=== PATIENT | female | born 1980 | race Caucasian/White ===

== ENCOUNTER 2024-04-28 10:05 | Emergency (ER) | payer OTHER, MEDICAID, SELFPAY ==
[2024-04-28 10:19] VITALS: BP 163/97; PULSE 64; RESP 20; TEMP 37.1; O2SAT 97; BMI 51.7
--- NOTE | 2024-04-28 10:40 | XR_ITS ---
Examination: Sacrococcyx 3 views Technique: AP inclined AP lateral sacrum and coccyx 3 views Exam date and time: April 28, 2024 1058 hrs. Indications: Injury to the sacrum 4 days ago with ankle pain. Findings: Adequate alignment sacral and coccygeal segments Moderate disc narrowing L5-S1 No acute sacral fracture Impression: No acute sacral fracture
--- NOTE | 2024-04-28 10:41 | PD.EDBACK ---
ED Back Injury Pain RME/HPI General Chief Complaint: Back Pain/Injury Stated Complaint: LOWER BACK/TAILBONE PAIN FELL OUT OF BED LAST NIGH Time Seen by Provider: 04/28/24 10:28 Source: patient Arrival date/time: 04/28/24 10:05 43-year-old female past medical history of diabetes and hypertension presents emergency department complaining of pain to tailbone after suffering fall off her bed and landing on her buttocks. Patient reports occurred last night. Patient denies any fever, chills, bowel or bladder dysfunction, saddle anesthesia, or any other associated symptom. Mode of arrival: ambulatory Limitations: no limitations Related Data Home Medications ?Medication ?Instructions ?Recorded ?Confirmed Levothyroxine * (SYNTHROID *) 75 mcg PO QDAY #0 tabs 10/21/16 12/04/19 fluoxetine 20 mg capsule (Prozac) 20 mg PO HS #0 caps 10/21/16 12/04/19 metoprolol tartrate 25 mg tablet 25 mg PO BID #0 tabs 12/06/16 12/04/19 hydrochlorothiazide PO 12/04/19 12/04/19 metformin PO 12/04/19 12/04/19 Previous Rx's ?Medication ?Instructions ?Recorded cyclobenzaprine 10 mg tablet 10 mg PO TID PRN muscle spasm #30 12/05/19 tabs ibuprofen 800 mg tablet 800 mg PO TID PRN pain #30 tabs 12/05/19 sulfamethoxazole 800 1 tab PO BID #14 tabs 07/09/22 mg-trimethoprim 160 mg tablet (Bactrim DS) hydrocodone 5 mg-acetaminophen 325 1 tab PO BID PRN pain #10 tabs 07/18/23 mg tablet ibuprofen 800 mg tablet 800 mg PO TID PRN pain #30 tabs 07/18/23 cyclobenzaprine 10 mg tablet 10 mg PO TID PRN muscle spasm #10 04/28/24 tabs ibuprofen 600 mg tablet 600 mg PO Q8H PRN pain #20 tabs 04/28/24 Allergies Allergy/AdvReac Type Severity Reaction Status Date / Time codeine Allergy Intermediate STOMACH Verified 07/09/22 14:50 PAIN sertraline Allergy Mild Rash Verified 07/09/22 14:50 nitrofurantoin Allergy Verified 07/18/23 14:50 [From Macrobid] Review of Systems Review of Systems Systems Reviewed: All systems reviewed, normal except as documented Constitutional Constitutional: Reports system reviewed and no additional complaints, except as documented, Denies body ache(s), Denies chills and Denies fever(s) Eyes Eyes: Reports system reviewed and no additional complaints, except as documented and Denies change in vision ENT Ears, Nose, Mouth, and Throat: Reports system reviewed and no additional complaints, except as documented, Denies disequilibrium, Denies dizziness, Denies sore throat and Denies vertigo Cardiovascular Cardiovascular: Reports system reviewed and no additional complaints, except as documented, Denies chest pain and Denies dyspnea Respiratory Respiratory: Reports system reviewed and no additional complaints, except as documented, Denies chest congestion, Denies cough and Denies dyspnea Gastrointestinal Gastrointestinal: Reports system reviewed and no additional complaints, except as documented, Denies abdominal pain, Denies nausea and Denies vomiting Musculoskeletal Musculoskeletal: Reports system reviewed and no additional complaints, except as documented, Denies abnormal gait, Denies arthralgias and Reports back pain Integumentary/Breasts Skin/Breast: Reports system reviewed and no additional complaints, except as documented, Denies erythema, Denies rash and Denies wounds Neurologic Neurologic: Reports system reviewed and no additional complaints, except as documented, Denies abnormal gait, Denies disequilibrium, Denies dizziness and Denies vertigo Past Medical History Past Medical History CARDIAC: Positive Hypertension; Negative Congestive Heart Failure RESPIRATORY: Negative Chronic Obstructive Pulmonary Disease (COPD) GENITOURINARY: Negative Renal Disease ENDOCRINE: Positive Diabetes Mellitus Type 2 and Hypothyroidism; Negative Diabetes Mellitus Type 1 PSYCHO/SOCIAL: Positive Depression Social History SMOKING STATUS: Never smoker ED Exam General Limitations: Present no limitations General appearance: Present alert and in no apparent distress Head Head exam: Present atraumatic Eye Eye exam: Present normal appearance, PERRL and EOMI ENT ENT exam: Present normal exam, normal oropharynx and mucous membranes moist Neck Neck exam: Present normal inspection, full ROM and trachea midline Chest Chest inspection: Present normal inspection and symmetric chest wall rise Respiratory Respiratory exam: Present normal lung sounds bilaterally Cardiovascular Cardiovascular exam: Present regular rate, normal rhythm and normal heart sounds Abdominal Exam Abdominal exam: Present soft and normal bowel sounds Extremities Exam Extremities exam: Present normal inspection and full ROM Back Exam Back exam: Present normal inspection, full ROM and tenderness (Lower back coccyx); Absent CVA tenderness (R) or CVA tenderness (L) Neurological Exam Neurological exam: Present alert, oriented X3 and CN II-XII intact Psychiatric Psychiatric exam: Present normal affect and normal mood Skin Skin exam: Present warm, dry, intact and normal color Course Quality Measures none Orders Category Date Time Status XR sacrum coccyx min 2V Stat Exams 04/28/24 10:40 Completed CYCLObenzaPRINE [Flexeril] Med 04/28/24 10:41 Discontinued 5 mg PO X1 ONE Ketorolac Inj [Toradol Inj] Med 04/28/24 10:41 Discontinued 30 mg IM X1 ONE Vital Signs Vital signs: Vital Signs Temperature 98.7 F 04/28/24 10:19 Pulse Rate 64 04/28/24 10:19 Respiratory Rate 20 04/28/24 10:19 Blood Pressure 163/97 H 04/28/24 10:19 Pulse Oximetry (%) 97 04/28/24 10:19 Oxygen Delivery Method Room Air 04/28/24 10:19 97% room air within normal limits Back Pain / Injury MDM Narrative MDM Narrative:: 43-year-old female past medical history of diabetes and hypertension presents emergency department complaining of pain to tailbone after suffering fall off her bed and landing on her buttocks. Patient reports occurred last night. Patient denies any fever, chills, bowel or bladder dysfunction, saddle anesthesia, or any other associated symptom. Patient GCS of 15 with steady gait. X-rays were negative for any acute fracture. Patient appears nontoxic and hemodynamically stable. Patient discharged and instructed to follow-up with primary care provider and request MRI if symptoms persist. Instructed to return to emergency department for any worsening symptoms or as needed. Patient data External records reviewed:: [facility] previous records Clinical information provided by:: patient Social determinants that could affect healthcare access:: none Patient has the following chronic illnesses:: See chart How is presenting disease/condition affected by chronic disease/condition?: uneffected by Evaluation data The following diagnostics were reviewed and interpreted by me:: radiology exam(s) Lab and/or radiology exams considered but not ordered:: Ordered Interpretation Summary: Interpreted by me Medications / Prescriptions Medications or Prescriptions considered but not ordered:: Ordered Medication administrations:: Medication Administration History Discontinued Medications Cyclobenzaprine HCl (Cyclobenzaprine 5 Mg Tablet) 5 mg PO X1 ONE Stop: 04/28/24 10:42 Last Admin: 04/28/24 10:46 Dose: 5 mg Documented By: LUCY Ketorolac Tromethamine (Ketorolac Inj 60 Mg/2 Ml Vial) 30 mg IM X1 ONE Stop: 04/28/24 10:42 Last Admin: 04/28/24 10:47 Dose: 30 mg Documented By: LUCY Given Consultations Consultation(s) initiated? (list below): No Diagnosis Differential diagnosis back pain/injury: lumbar radiculopathy, sciatica, strain of lumbar region, renal colic, pyelonephritis, thoracic back pain, AAA and discitis Most likely diagnosis given after review of the tests above:: Contusion of sacrum Admission Indicated Admission indicated?: not indicated Admission Request Was there a request for admission?: No Disposition Plan Disposition Plan: Discharge Discharge Attestation Discharge Attestation: The patient and all family members were given an opportunity to ask questions and understood the discharge instructions. Discharge instructions specifically effects, indications for sooner follow up or return to the emergency department, and the expected course of current diagnosis. Patient condition: Stable Discharge Plan Plan Patient Disposition: HOME (Self Care) Disposition Comment: Stable Prescriptions/Referrals Prescriptions/Med Rec: New cyclobenzaprine 10 mg tablet 10 mg PO TID PRN (Reason: muscle spasm) Qty: 10 0RF ibuprofen 600 mg tablet 600 mg PO Q8H PRN (Reason: pain) Qty: 20 0RF No Action hydrochlorothiazide PO metformin PO fluoxetine [Prozac] 20 MG capsule 20 mg PO HS Qty: 0 Levothyroxine * (SYNTHROID *) 75 MCG tablet 75 mcg PO QDAY Qty: 0 metoprolol tartrate 25 MG tablet 25 mg PO BID Qty: 0 cyclobenzaprine 10 mg tablet 10 mg PO TID PRN (Reason: muscle spasm) Qty: 30 0RF ibuprofen 800 mg tablet 800 mg PO TID PRN (Reason: pain) Qty: 30 0RF sulfamethoxazole-trimethoprim [Bactrim DS] 800-160 mg tablet 1 tab PO BID Qty: 14 0RF ibuprofen 800 mg tablet 800 mg PO TID PRN (Reason: pain) Qty: 30 0RF hydrocodone-acetaminophen 5-325 mg tablet 1 tab PO BID MDD 10 PRN (Reason: pain) Qty: 10 0RF Referrals: Lilly Silveira PA-C ([facility]) [Primary Care Provider] - In 1 week Problem List Clinical Impression: Contusion of sacrum Patient/Caregiver Discharge Instructions Discharge Activity: activity as tolerated Education Materials: Back Safety Bed, Back Safety: Bending, Back Safety: Lifting, ED Coccyx or Sacrum Contusion, ED Back Contusion Additional Instructions: Take medication as prescribed. Follow-up with primary care provider in 2 to 3 days and request physical therapy or MRI if symptoms persist. Return to emergency department for any worsening symptoms or as needed. Print Language: Mohawk Stand Alone Forms: Angela Award Info., Patient Portal Info Letter PA/MARKETING OPERATIONS MANAGER Supervising Physician PA/MARKETING OPERATIONS MANAGER Supervising Physician: Dr. Max
[2024-04-28] MEDS: CYCLObenzaPRINE 5 MG TABLET PO (10:46)
[2024-04-28] MEDS: KETOROLAC INJ 60 MG/2 ML VIAL 30 MG IM (10:47)
== END 2024-04-28 11:50 | disposition home or self-care (01) ==
PROVIDERS: Emergency Provider Emergency Medicine; PCP Physician Assistant
DX: S30.0XXA Contusion of lower back and pelvis, initial encounter (principal); W06.XXXA Fall from bed, initial encounter; E11.9 Type 2 diabetes mellitus without complications; I10 Essential (primary) hypertension
CPT/HCPCS: 72220; 96372; 99283; J1885; A9270